=== PATIENT | male | born 1940 ===

== ENCOUNTER 2018-04-11 19:14 | Emergency (ER) | payer OTHER ==
[~2018-04-11] VITALS: Ht 167.6 cm; Wt 54.4 kg
[~2018-04-11 19:14] MED LIST: ADULT ASPIRIN81 MG; NABUMETONE750 MG PO
[2018-04-11] MEDS ORDERED: TIVICAY50 MG (19:18)
[2018-04-11] MEDS ORDERED: DESCOVY 200-251 EACH (19:18)
== END 2018-04-11 23:45 | disposition home or self-care (01) ==
LOC: ER 19:14
DX: S05.11XA Contusion of eyeball and orbital tissues, right eye, initial encounter (principal); B20 Human immunodeficiency virus [HIV] disease; W18.09XA Striking against other object with subsequent fall, initial encounter; Y93.89 Activity, other specified; Y92.098 Other place in other non-institutional residence as the place of occurrence of the external cause; Y99.8 Other external cause status

== ENCOUNTER 2018-04-22 11:31 | Inpatient (IN) | payer OTHER ==
[~2018-04-22] VITALS: Ht 167.6 cm; Wt 117.0 kg
[~2018-04-22 11:31] MED LIST changes: +DESCOVY 200-251 EACH; +TIVICAY50 MG
[2018-05-06] MEDS ORDERED: LOPRESSOR25 MG PO (11:45)
[2018-05-06] MEDS ORDERED: CLOPIDOGREL BIS75 MG PO (11:45)
[2018-05-06] MEDS ORDERED: PRAVASTATIN SOD10 MG PO (11:46)
[2018-05-06] MEDS ORDERED: ASA-EC81 MG PO (11:46)
[2018-05-06] MEDS ORDERED: PRE PROTEIN 2030 ML PO (11:46)
[2018-05-06] MEDS ORDERED: INTESTINEX680 M1 PO (11:48)
[2018-05-06] MEDS ORDERED: LEVAQUIN500 MG PO (11:48)
== END 2018-05-06 17:02 | disposition home or self-care (01) | DRG 65 ==
LOC: ER 11:31 → ICU-2 19:51 → SEC-K 04-25 11:35 → MEDI 04-25 11:39
PROVIDERS: ADMIT Internal Medicine
PROC: BH4CZZZ Ultrasonography of Head and Neck (ICD-10-PCS; principal; 2018-04-22)
PROC: B030ZZZ Magnetic Resonance Imaging (MRI) of Brain (ICD-10-PCS; 2018-04-22)
PROC: B34KZZZ Ultrasonography of Bilateral Upper Extremity Arteries (ICD-10-PCS; 2018-04-22)
PROC: B246ZZZ Ultrasonography of Right and Left Heart (ICD-10-PCS; 2018-04-22)
PROC: 4A033R1 Measurement of Arterial Saturation, Peripheral, Percutaneous Approach (ICD-10-PCS; 2018-04-22)
PROC: 0T9B70Z Drainage of Bladder with Drainage Device, Via Natural or Artificial Opening (ICD-10-PCS; 2018-04-22)
PROC: 0DH67UZ Insertion of Feeding Device into Stomach, Via Natural or Artificial Opening (ICD-10-PCS; 2018-04-22)
PROC: 4A12X4Z Monitoring of Cardiac Electrical Activity, External Approach (ICD-10-PCS; 2018-04-25)
DX: I63.412 Cerebral infarction due to embolism of left middle cerebral artery (principal); B20 Human immunodeficiency virus [HIV] disease; G81.01 Flaccid hemiplegia affecting right dominant side; N39.0 Urinary tract infection, site not specified; I10 Essential (primary) hypertension; R13.19 Other dysphagia; S70.01XS Contusion of right hip, sequela; S00.83XS Contusion of other part of head, sequela; I69.322 Dysarthria following cerebral infarction; I69.391 Dysphagia following cerebral infarction; R13.11 Dysphagia, oral phase; Z79.01 Long term (current) use of anticoagulants; R29.701 NIHSS score 1
CPT/HCPCS: 70553

== ENCOUNTER 2018-05-28 16:47 | Emergency (ER) | payer OTHER ==
[~2018-05-28] VITALS: Ht 162.6 cm; Wt 505.8 kg
[~2018-05-28 16:47] MED LIST changes: +ASA-EC81 MG PO; +CLOPIDOGREL BIS75 MG PO; +INTESTINEX680 M1 PO; +LEVAQUIN500 MG PO; +LOPRESSOR25 MG PO; +PRAVASTATIN SOD10 MG PO; +PRE PROTEIN 2030 ML PO
== END 2018-05-28 21:56 | disposition home or self-care (01) ==
LOC: ER 16:47
DX: N39.0 Urinary tract infection, site not specified (principal); B95.7 Other staphylococcus as the cause of diseases classified elsewhere; R31.0 Gross hematuria

== ENCOUNTER → 2018-07-17 | Emergency (ER) | payer OTHER ==
[~2018-07-17] VITALS: Ht 162.6 cm; Wt 49.9 kg
== END | disposition home or self-care (01) ==
LOC: ER 16:05
DX: N39.0 Urinary tract infection, site not specified (principal); B95.4 Other streptococcus as the cause of diseases classified elsewhere

== ENCOUNTER 2018-07-28 18:22 | Emergency (ER) | payer OTHER ==
[~2018-07-28] VITALS: Ht 162.6 cm; Wt 49.9 kg
== END 2018-07-28 23:20 | disposition home or self-care (01) ==
LOC: ER 18:22
DX: T83.091A Other mechanical complication of indwelling urethral catheter, initial encounter (principal); K62.89 Other specified diseases of anus and rectum; N39.0 Urinary tract infection, site not specified; B96.5 Pseudomonas (aeruginosa) (mallei) (pseudomallei) as the cause of diseases classified elsewhere

== ENCOUNTER 2019-03-18 15:35 | Inpatient (IN) | payer OTHER ==
[~2019-03-18] VITALS: Ht 152.4 cm; Wt 40.8 kg
== END 2019-04-05 20:19 | disposition home or self-care (01) | DRG 682 ==
LOC: ER 15:35 → SURH 23:07 → MEDJ 23:07
PROVIDERS: ADMIT Internal Medicine
PROC: BW28ZZZ Computerized Tomography (CT Scan) of Head (ICD-10-PCS; principal; 2019-03-18)
PROC: B246ZZZ Ultrasonography of Right and Left Heart (ICD-10-PCS; 2019-03-20)
PROC: BT43ZZZ Ultrasonography of Bilateral Kidneys (ICD-10-PCS; 2019-03-20)
PROC: B03BZZZ Magnetic Resonance Imaging (MRI) of Spinal Cord (ICD-10-PCS; 2019-03-20)
PROC: BT43ZZZ Ultrasonography of Bilateral Kidneys (ICD-10-PCS; 2019-03-20)
PROC: 30233R1 Transfusion of Nonautologous Platelets into Peripheral Vein, Percutaneous Approach (ICD-10-PCS; 2019-03-22)
PROC: 0DH673Z Insertion of Infusion Device into Stomach, Via Natural or Artificial Opening (ICD-10-PCS; 2019-03-23)
PROC: B54PZZZ Ultrasonography of Bilateral Upper Extremity Veins (ICD-10-PCS; 2019-03-26)
DX: N17.8 Other acute kidney failure (principal); I63.412 Cerebral infarction due to embolism of left middle cerebral artery; A41.81 Sepsis due to Enterococcus; I63.532 Cerebral infarction due to unspecified occlusion or stenosis of left posterior cerebral artery; A41.89 Other specified sepsis; A41.1 Sepsis due to other specified staphylococcus; N39.0 Urinary tract infection, site not specified; E87.0 Hyperosmolality and hypernatremia; T83.89XA Other specified complication of genitourinary prosthetic devices, implants and grafts, initial encounter; E86.0 Dehydration; I07.1 Rheumatic tricuspid insufficiency; I34.0 Nonrheumatic mitral (valve) insufficiency; I37.1 Nonrheumatic pulmonary valve insufficiency; I35.8 Other nonrheumatic aortic valve disorders; I35.1 Nonrheumatic aortic (valve) insufficiency; Z66 Do not resuscitate; D69.49 Other primary thrombocytopenia; R29.700 NIHSS score 0; Z74.01 Bed confinement status; R13.14 Dysphagia, pharyngoesophageal phase
CPT/HCPCS: 70551

== ENCOUNTER → 2019-06-16 | Emergency (ER) | payer OTHER ==
[~2019-06-16] VITALS: Ht 162.6 cm; Wt 52.2 kg
[~2019-06-16] MED LIST changes: +INTEGRA CAPSUL1 EACH; +PROTONIX40 MG
== END | disposition home or self-care (01) ==
LOC: ER 17:21
DX: B20 Human immunodeficiency virus [HIV] disease (principal); L89.620 Pressure ulcer of left heel, unstageable; L89.150 Pressure ulcer of sacral region, unstageable; Z74.01 Bed confinement status

== ENCOUNTER 2020-03-21 11:44 | Inpatient (IN) | payer OTHER ==
[~2020-03-21] VITALS: Ht 152.4 cm; Wt 36.3 kg
== END 2020-03-23 05:00 | disposition expired | DRG 974 ==
LOC: ER 11:44 → ICU-2 22:03
PROVIDERS: ADMIT Internal Medicine; ATTEND Internal Medicine
PROC: 30233N1 Transfusion of Nonautologous Red Blood Cells into Peripheral Vein, Percutaneous Approach (ICD-10-PCS; principal; 2020-03-21)
PROC: BW24ZZZ Computerized Tomography (CT Scan) of Chest and Abdomen (ICD-10-PCS; 2020-03-21)
PROC: 30233N1 Transfusion of Nonautologous Red Blood Cells into Peripheral Vein, Percutaneous Approach (ICD-10-PCS; 2020-03-22)
PROC: B24BZZZ Ultrasonography of Heart with Aorta (ICD-10-PCS; 2020-03-22)
DX: J18.8 Other pneumonia, unspecified organism (principal); I50.21 Acute systolic (congestive) heart failure; B20 Human immunodeficiency virus [HIV] disease; A41.9 Sepsis, unspecified organism; J91.8 Pleural effusion in other conditions classified elsewhere; E46 Unspecified protein-calorie malnutrition; R64 Cachexia; I69.351 Hemiplegia and hemiparesis following cerebral infarction affecting right dominant side; N17.8 Other acute kidney failure; B37.89 Other sites of candidiasis; E86.0 Dehydration; I11.0 Hypertensive heart disease with heart failure; Z74.01 Bed confinement status; B95.62 Methicillin resistant Staphylococcus aureus infection as the cause of diseases classified elsewhere; M24.60 Ankylosis, unspecified joint; S09.93XA Unspecified injury of face, initial encounter; S79.911A Unspecified injury of right hip, initial encounter; S79.921A Unspecified injury of right thigh, initial encounter; Z20.828 Contact with and (suspected) exposure to other viral communicable diseases; D64.89 Other specified anemias